=== PATIENT | male | born 1970 | race Two or more races ===

== ENCOUNTER 2020-12-06 19:54 | Emergency (ER) | payer MEDICAID, OTHER ==
[~2020-12-06] VITALS: Ht 182.9 cm; Wt 74.8 kg
[2020-12-07] MEDS ORDERED: ONDANSETRON ODT 4 MG TAB PO ONE (03:45)
[2020-12-07] MEDS ORDERED: ACETAMINOPHEN/CODEINE#3 (300/30mg) TAB PO ONE (03:45)
[2020-12-07 03:50] VITALS: BP 156/93
== END 2020-12-07 04:03 | disposition home or self-care (01) ==
LOC: ER 19:54
DX: M25.511 Pain in right shoulder (principal); F17.210 Nicotine dependence, cigarettes, uncomplicated
CPT/HCPCS: 73030; 99283; Q0162

== ENCOUNTER 2025-06-29 15:58 | Inpatient (IN) | payer MEDICAID ==
[~2025-06-29] VITALS: Ht 182.9 cm; Wt 63.9 kg
--- NOTE | 2025-06-29 16:16 | ECG ---
[facility] Test Date: 2025-06-29 Test Time: 15:58:42 Pat Name: MERVIN CAT Department: [facility] ED Room: [address] [place] [address] Gender: M [employer] Keeper: LEV : 1970 Requested By: RONY CASEY Order Number: [id number] Reading MD: Yuriy Nichols Measurements Intervals [place] Rate: 101 P: 90 FL: 120 QRS: 88 QRSD: 104 T: 69 QT: 346 QTc: 449 Interpretive Statements Sinus tachycardia Right atrial enlargement Baseline wander in lead(s) V1 Electronically Signed On 06-30-2025 15:28:40 PST by Yuriy Nichols Please click the below link to view image of tracing.
--- NOTE | 2025-06-29 17:11 | ED.PDOC ---
SOB-HPI HPI Comments This is a 54 year old male presenting to the ED with chief complaint of SOB. Patient reports that he has been experiencing SOB with associated sore throat, coughing, and wheezing for the past 3 days. Patient relays that he does smoke daily. Patient denies any chest pain, fever, chills, or N/V. Chief Complaint: Shortness of Breath Time Seen by MD: 17:10 Reviewed notes: Nurses Notes, Medications, Allergies Information Source: Patient Mode of Arrival: EMS Severity: Moderate Timing: Days Duration: Since onset Context: At Rest PE Risk Factors: None History of: None Prehospital treatment: None Associated Signs and Symptoms: Wheeze, Cough If cough with SOB: Non-Productive Past Medical History PAST MEDICAL HISTORY: Denies Surgical History: Denies all surgeries Family History Family History: Reviewed,noncontributory to illness Social History Smoker: Non-Smoker, Cigarettes, Less Than 1 Pack/Day Alcohol: Denies ETOH Use Drugs: Denies Drug Use Lives In: Home Constitutional: denies: chills, diaphoresis, fatigue, fever, malaise, sweats, weakness, others EENTM: reports: throat pain; denies: blurred vision, double vision, ear bleeding, ear discharge, ear drainage, ear pain, ear ringing, eye pain, eye redness, hearing loss, mouth pain, mouth swelling, nasal discharge, nose bleeding, nose congestion, nose pain, photophobia, tearing, throat swelling, voice changes, others Respiratory: reports: cough, shortness of breath, wheezing; denies: hemoptysis, orthopnea, SOB at rest, SOB with excertion, stridor, others Cardiovascular: denies: chest pain, dizzy spells, diaphoresis, Dyspnea on exertion, edema, irregular heart beat, left arm pain, lightheadedness, palpitations, PND, syncope, others Gastrointestinal: denies: abdomen distended, abdominal pain, blood streaked bowels, constipated, diarrhea, dysphagia, difficulty swallowing, hematemesis, melena, nausea, poor appetite, poor fluid intake, rectal bleeding, rectal pain, vomiting, others Genitourinary: denies: burning, dysuria, flank pain, frequency, hematuria, incontinence, penile discharge, penile sore, pain, testicle pain, testicle swelling, urgency, others Neurological: denies: dizziness, fainting, headache, left sided numbness, left sided weakness, numbness, paresthesia, pre-existing deficit, right sided numb ness, right sided weakness, seizure, speech problems, tingling, tremors, weakness, others Musculoskeletal: denies: back pain, gout, joint pain, joint swelling, muscle pain, muscle stiffness, neck pain, others Integumetry: denies: bruises, change in color, change in hair/nails, dryness, laceration, lesions, lumps, rash, wounds, others Allergic/Immunocompromised: denies: Difficulty Healing, Frequent Infections, Hives, Itching, others Hematologic/Lymphatic: denies: anemia, blood clots, easy bleeding, easy bruising, swollen glands, others Endocrine: denies: excessive hunger, excessive sweating, excessive thirst, excessive urination, flushing, intolerance to cold, intolerance to heat, unexplained weight gain, unexplained weight loss, others Psychiatric: denies: anxiety, bipolar disorder, depression, hopeless, panic disorder, schizophrenia, sleepless, suicidal, others All Other Systems: Reviewed and Negative Physical Exam General Appearance: Moderate Distress, Normal HEENT: Normal ENT Inspection, Pharynx Normal, TMs Normal Neck: Full Range of Motion, Non-Tender, Normal, Normal Inspection Respiratory: Chest Non-Tender, Respiratory Distress, Wheezing Cardiovascular: No Edema, No JVD, No Murmur, No Gallop, Normal Peripheral Pulses, Regular Rate/Rhythm Breast Exam: Deferred Gastrointestinal: No Organomegaly, Non Tender, No Pulsatile Mass, Normal Bowel Sounds, Soft Genitalia: Deferred Pelvic: Deferred Rectal: Deferred Extremities: No calf tenderness, Normal capillary refill, Normal inspection, Normal range of motion, Non-tender, No pedal edema Musculoskeletal : Apperance: Normal Neurologic: Alert, head batcher II-XII nml as Tested, No Motor Deficits, Normal Affect, Normal Mood, No Sensory Deficits Cerebellar Function: NOT DONE Reflexes: NOT DONE Skin: Dry, Normal Color, Warm Peripheral Pulses: 3+ Radial (R), 3+ Radial (L) Lymphatic: No Adenopathy Was a procedure done? Was a procedure done?: No Differential Dx Differential Diagnosis: Anxiety, Asthma, Bronchitis, CHF, COPD, Pneumonia, Respiratory Distress X-Ray, Labs, Meds, VS Vital Signs Date Time Temp Pulse Resp B/P (MAP) Pulse Ox O2 Delivery O2 Flow Rate FiO2 12/21/25 16:07 97.8 99 19 142/92 95 97.8 06/29/25 15:58 101 Lab Test 06/29/25 17:09 Range/Units White Blood Count Pending Red Blood Count Pending Hemoglobin Pending Hematocrit Pending Mean Corpuscular Volume Pending Mean Corpuscular Hemoglobin Pending Mean Corpuscular Hemoglobin Concent Pending Red Cell Distribution Width Pending Platelet Count Pending Mean Platelet Volume Pending Neutrophils (%) (Auto) Pending Lymphocytes (%) (Auto) Pending Monocytes (%) (Auto) Pending Basophils (%) (Auto) Pending Neutrophils # (Auto) Pending Lymphocytes # (Auto) Pending Monocytes # (Auto) Pending Sodium Level Pending Potassium Level Pending Chloride Level Pending Carbon Dioxide Level Pending Anion Gap Pending Blood Urea Nitrogen Pending Creatinine Pending Glomerular Filtration Rate Calc Pending BUN/Creatinine Ratio Pending Serum Glucose Pending Calcium Level Pending Troponin I High Sensitivity Pending Patient alert. Placed on oxygen. Came in because shortness a breath. Moving all extremities. Answering questions. Continues smoke cigarettes. Counseled patient on effects of smoking cigarettes for 15 minutes. Establish intravenous access. Was given steroid. Was given Rocephin. Was given azithromycin. Explained to the patient. Continue to monitor. Time of 1ST Reevaluation: 18:09 Reevaluation 1ST: Unchanged Patient Education/Counseling: Diagnosis, Treatment Family Education/Counseling: No Family Present SEPSIS Sepsis Screen Date sepsis recognized/suspect: Jun 29, 2025 Time Sepsis recognized/suspect: 1600 Recent Procedure: No On Antibiotic Therapy: No Respiratory Rate >20: No Heart Rate >90: No Temp<36 C (96.8 F) or >38.3 C: No SBP <90 or MAP <65 mmHG: No New Acute Mental Status Change: No Is the patient on CPAP, BIPAP,: No Physician Orders Troponin-I Hs (06/29/25 16:52) Complete Blood Count (06/29/25 16:52) Chest Portable (06/29/25 16:52) Urinalysis (06/29/25 16:52) Basic Metabolic Panel (06/29/25 16:52) Ceftriaxone 1gm/50ml (Rocephin) (06/29/25 17:15) Azithromycin 500mg/250ml (Zithromax 500m (06/29/25 17:15) Vital Signs Date Time Temp Pulse Resp B/P (MAP) Pulse Ox O2 Delivery O2 Flow Rate FiO2 06/29/25 16:07 97.8 99 19 142/92 95 97.8 06/29/25 15:58 101 Laboratory Tests Test 06/29/25 17:09 White Blood Count Pending Departure 1 Departure Time of Disposition: 17:28 Impression: Primary Impression: Acute respiratory failure Qualified Codes: J96.01 - Acute respiratory failure with hypoxia Additional Impression: Pneumonitis Disposition: ADMITTED INPATIENT Admit to: Med Surg Condition: Guarded Critical Care Note Critical Care Time?: Yes (90 min-critical care time only) Stability Stability form required: No Heart Score Heart Score: Heart Score Response (Comments) Value History N/A 0 EKG N/A 0 Age N/A 0 Risk Factors N/A 0 Troponin N/A 0 Total 0 I personally scribed for RONY CASEY MD ([email or web address]) on 06/29/25 at 17:11. Electronically submitted by Thomas Brar ([email or web address]). RONY CASEY MD Jun 29, 2025 17:11
[2025-06-29 17:31] LABS: Hematocrit 49.9 % (41.0-53.0); Hemoglobin 17.3 g/dL (13.5-17.5); Mean Corpuscular Hemoglobin 31.4 pg (28.0-32.0); Mean Corpuscular Volume 90.8 fL (80.0-100.0); Nucleated Red Blood Cells % 0.1 %
--- NOTE | 2025-06-29 17:38 | DVH ---
INDICATION: sob TECHNIQUE: Frontal view of the chest. COMPARISON: None FINDINGS: . The heart and mediastinal contours are grossly unremarkable. There are probably trace bilateral pleural effusions. The lungs are clear. The bony structures of the chest are intact without fracture. IMPRESSION: 1. No evidence of acute disease. 2. Trace bilateral pleural effusions
[2025-06-29 17:40] LABS: Potassium 3.5 mmol/L (3.5-5.1); Sodium 137 mmol/L (136-145)
[2025-06-29 17:41] LABS: Calcium 10.0 mg/dL (8.7-10.4); Carbon Dioxide 28 mmol/L (20-31)
[2025-06-29 17:44] LABS: Anion Gap 13 (5-15)
[2025-06-29 17:46] LABS: BUN/Creatinine Ratio 19.8 (10.0-20.0); Blood Urea Nitrogen 18 mg/dL (9-23)
[2025-06-29 17:47] LABS: Chloride 96 mmol/L (98-107); Glucose 111 mg/dL (74-106)
[2025-06-29] MEDS: methylPREDNISolone SOD SUCC 125 MG/2 ML VL IV ONE (20:20)
[2025-06-29] MEDS: AZITHROMYCIN 500MG/250ML 250 ML IV ONE (20:53)
[2025-06-29] MEDS ORDERED: ALBUTEROL SULF 2.5 MG/0.5ML(0.5%) NEB SOLN NEB PRN (23:30)
[2025-06-29] MEDS ORDERED: IPRATROPIUM BROM 0.5 MG/2.5ML INH SOL NEB PRN (23:30)
[2025-06-29] MEDS ORDERED: ACETAMINOPHEN 325 MG TAB PO PRN (23:30)
[2025-06-29] MEDS ORDERED: ONDANSETRON HCL 4 MG/2 ML VIAL IV PRN (23:30)
[2025-06-29] MEDS ORDERED: TEMAZEPAM 15 MG CAP PO PRN (23:30)
[2025-06-30] VITALS (10 sets, daily range): BP systolic 108–117; BP diastolic 63–77; PULSE 77–80; RESP 16–20; TEMP 97.5–98.7; O2SAT 80–100
--- NOTE | 2025-06-30 01:18 | DVHHP2 ---
History of Present Illness Reason for Visit: Shortness for breath History of Present Illness 54-year-old male presents for evaluation of shortness for breath. Patient reports a three day history of shortness for breath with associated sore throat and wheezing. No fever or chills. No chest pain Past Medical History ? COPD Past Surgical History Denies Family History Noncontributory Smoke: <1 pack per day ALCOHOL: none Drugs: None Review of Systems Review of Systems Review of systems are currently negative otherwise addressed in HPI. Allergies: Coded Allergies: NO KNOWN ALLERGIES (Unverified , 06/29/25) Medications Current Medications Medications Dose Ordered Sig/Amelia Route Start Time Stop Time Status Last Admin Dose Admin Albuterol 2.5 mg Q6HPRN PRN NEB 06/29/25 23:30 Ipratropium [place] 0.5 mg Q6HPRN PRN NEB 06/29/25 23:30 Methylprednisolone Sodium Succinate 40 mg DAILY IV 06/30/25 10:00 Temazepam 15 mg QHSP PRN PO 06/29/25 23:30 Ondansetron HCl 4 mg Q4HP PRN IV 06/29/25 23:30 Acetaminophen 650 mg Q6HP PRN PO 06/29/25 23:30 Exam Vital Signs Vital Signs Date Time Temp Pulse Resp B/P (MAP) Pulse Ox O2 Delivery O2 Flow Rate FiO2 06/30/25 00:32 97.8 87 16 123/77 (92) 97 97.8 06/29/25 20:17 Nasal Cannula 2.0 Exam Gen: 54-year-old male in mild distress. Skin: Warm, dry, normal color and texture, no rash. HEENT: Normocephalic atraumatic, mucous membranes moist and pink. Neck: Cervical and supraclavicular nodes normal without enlargement, trachea is midline, thyroid gland is normal without masses. Pulmonary: Bilateral wheeze Cardiac: Regular rate and rhythm. No murmur Abdomen: Soft, nontender, nondistended, bowel sounds present all 4 quadrants, no guarding, no rigidity, no organomegaly. Extremities: No cyanosis, clubbing, no edema Neuro: Cranial nerves II through XII grossly intact, normal affect and speech, no focal motor deficits. Labs/Xrays ORDERING PHYSICIAN: RONY CASEY MD PROCEDURE(s): CXRP - CHEST PORTABLE REASON: sob ORDER NUMBER(s): [id number], ACCESSION NUMBER(s): [id number] INDICATION: sob TECHNIQUE: Frontal view of the chest. COMPARISON: None FINDINGS: . The heart and mediastinal contours are grossly unremarkable. There are probably trace bilateral pleural effusions. The lungs are clear. The bony structures of the chest are intact without fracture. IMPRESSION: 1. No evidence of acute disease. 2. Trace bilateral pleural effusions Labs Test 06/29/25 23:41 06/29/25 17:09 Range/Units D-Dimer, Quantitative 0.36 0.0-0.49 mg/L FEU White Blood Count 11.8 H 4.4-10.8 10^3/uL Red Blood Count 5.50 4.5-5.90 10^6/uL Hemoglobin 17.3 13.5-17.5 g/dL Hematocrit 49.9 41.0-53.0 % Mean Corpuscular Volume 90.8 80.0-100.0 fL Mean Corpuscular Hemoglobin 31.4 28.0-32.0 pg Mean Corpuscular Hemoglobin Concent 34.6 32.0-36.0 g/dL Red Cell Distribution Width 13.6 11.8-14.3 % Platelet Count 294 140-450 10^3/uL Mean Platelet Volume 8.8 6.9-10.8 fL Neutrophils (%) (Auto) 67.6 37.0-80.0 % Lymphocytes (%) (Auto) 19.3 10.0-50.0 % Monocytes (%) (Auto) 11.7 0.0-12.0 % Eosinophils (%) (Auto) 0.5 0.0-7.0 % Basophils (%) (Auto) 0.9 0.0-2.0 % Neutrophils # (Auto) 8.0 1.6-8.6 10 ^3/uL Lymphocytes # (Auto) 2.3 0.4-5.4 10 ^3/uL Monocytes # (Auto) 1.4 H 0-1.3 10 ^3/uL Eosinophils # (Auto) 0.1 0-0.8 10 ^3/uL Basophils # (Auto) 0.1 0-0.2 10 ^3/uL Nucleated Red Blood Cells 0.1 % Sodium Level 137 136-145 mmol/L Potassium Level 3.5 3.5-5.1 mmol/L Chloride Level 96 L 98-107 mmol/L Carbon Dioxide Level 28 20-31 mmol/L Anion Gap 13 5-15 Blood Urea Nitrogen 18 9-23 mg/dL Creatinine 0.91 0.700-1.30 mg/dL Glomerular Filtration Rate Calc 100 >90 mL/min BUN/Creatinine Ratio 19.8 10.0-20.0 Serum Glucose 111 H 74-106 mg/dL Calcium Level 10.0 8.7-10.4 mg/dL Troponin I High Sensitivity 9 </=54 ng/L SEPSIS Sepsis Screen Date sepsis recognized/suspect: Jun 29, 2025 Time Sepsis recognized/suspect: 2226 Recent Procedure: No On Antibiotic Therapy: Yes (DURING THIS HOSPITALIZATION) Respiratory Rate >20: No Heart Rate >90: No Temp<36 C (96.8 F) or >38.3 C: No SBP <90 or MAP <65 mmHG: No New Acute Mental Status Change: No Is the patient on CPAP, BIPAP,: No Physician Orders Covid19 Antigen Bell (06/29/25 ) Rapid Influenza A&B (06/29/25 23:30) Albuterol Medneb (Ventolin Medneb) (06/29/25 23:30) Ipratropium Medneb (Atrovent Medneb) (06/29/25 23:30) Methylprednisolone Sod Succ (Solu Medrol (06/30/25 10:00) Basic Metabolic Panel (06/30/25 04:00) Admit (06/29/25 23:30) Temazepam (Restoril) (06/29/25 23:30) Ondansetron Hcl (Zofran) (06/29/25 23:30) Complete Blood Count (06/30/25 04:00) Condition: Stable (06/29/25 23:30) Acetaminophen Tablet (Tylenol Tablet) (06/29/25 23:30) Bedrest With Bathroom Privileg (06/29/25 23:30) Vital Signs Date Time Temp Pulse Resp B/P (MAP) Pulse Ox O2 Delivery O2 Flow Rate FiO2 06/30/25 00:32 97.8 87 16 123/77 (92) 97 97.8 06/29/25 22:27 89 15 105/64 (78) 96 06/29/25 20:17 Nasal Cannula 2.0 06/29/25 20:16 97.3 93 22 120/80 (93) 98 97.3 Laboratory Tests Test 06/29/25 17:09 White Blood Count 11.8 10^3/uL (4.4-10.8) H Medications Medications Dose Ordered Sig/Amelia Route Start Time Stop Time Status Last Admin Dose Admin Azithromycin 250 ml @ 125 mls/hr ONCE ONCE IV 06/29/25 17:15 06/29/25 19:14 DC 06/29/25 20:53 125 MLS/HR Ceftriaxone Sodium 50 ml @ 100 mls/hr ONCE ONCE IV 06/29/25 17:15 06/29/25 17:44 DC 06/29/25 20:20 100 MLS/HR Methylprednisolone Sodium Succinate 125 mg ONCE ONCE IV 06/29/25 17:15 06/29/25 17:16 DC 06/29/25 20:20 125 MG Assessment/Plan Assessment/Plan Acute on chronic hypoxic respiratory failure COPD with possible exacerbation Plan Admit the patient to Med surge to the hospitalist Med nebs Continue treatment per orders. Plan discussed with: Patient My Orders Orders - IGNACIO HONEYCUTT Procedure Category Date Status Time Covid19 Antigen Bell LAB 06/29/25 Logged Rapid Influenza A&B LAB 06/29/25 Logged 23:30 Albuterol Medneb PHA 06/29/25 In Process (Ventolin Medneb) 23:30 Ipratropium Medneb PHA 06/29/25 In Process (Atrovent Medneb) 23:30 Methylprednisolone PHA 06/30/25 In Process Sod Succ (Solu Medrol 10:00 Basic Metabolic Panel LAB 06/30/25 Logged 04:00 Admit ADMIT 06/29/25 Transmitted 23:30 Temazepam (Restoril) PHA 06/29/25 In Process 23:30 Ondansetron Hcl PHA 06/29/25 In Process (Zofran) 23:30 Complete Blood Count LAB 06/30/25 Logged 04:00 Condition: Stable VITALY 06/29/25 In Process 23:30 Acetaminophen Tablet PHA 06/29/25 In Process (Tylenol Tablet) 23:30 Bedrest With Bathroom VITALY 06/29/25 In Process Privileg 23:30 Date of Service: Jun 29, 2025 Billing Provider: IGNACIO HONEYCUTT Common Visit Codes: [id number] INP/OBS CARE (HIGH) IGNACIO HONEYCUTT Jun 30, 2025 01:18
[2025-06-30 03:21] LABS: COVID19 ANTIGEN SOFIA FIA NEGATIVE (NEGATIVE)
[2025-06-30 04:31] LABS: Hematocrit 49.8 % (41.0-53.0); Hemoglobin 16.9 g/dL (13.5-17.5); Mean Corpuscular Hemoglobin 31.0 pg (28.0-32.0); Mean Corpuscular Volume 91.7 fL (80.0-100.0); Nucleated Red Blood Cells % 0.2 %
[2025-06-30 04:51] LABS: Anion Gap 14 (5-15); Carbon Dioxide 28 mmol/L (20-31); Potassium 3.9 mmol/L (3.5-5.1)
[2025-06-30 04:52] LABS: Calcium 10.2 mg/dL (8.7-10.4)
[2025-06-30 04:53] LABS: Chloride 94 mmol/L (98-107); Sodium 136 mmol/L (136-145)
[2025-06-30 04:57] LABS: BUN/Creatinine Ratio 18.2 (10.0-20.0); Blood Urea Nitrogen 18 mg/dL (9-23)
[2025-06-30 05:14] LABS: Glucose 143 mg/dL (74-106)
[2025-06-30 08:00] LABS: Urine Protein, UAD 1+ (Negative)
[2025-06-30 09:23] LABS: Alanine Aminotransferase 17.0 U/L (7-40); Alkaline Phosphatase 115.0 U/L (46-116)
[2025-06-30 09:24] LABS: Albumin 4.9 g/dL (3.2-4.8); Bilirubin, Direct 0.2 mg/dL (<0.3); Bilirubin, Total 0.4 mg/dL (0.2-1.0); Total Protein 8.7 g/dL (5.7-8.2)
[2025-06-30] MEDS: methylPREDNISolone SOD SUCC 40 MG/ML VL ONE (09:35)
[2025-06-30] MEDS: methylPREDNISolone SOD SUCC 40 MG/ML VL IV SCH (10:00)
--- NOTE | 2025-06-30 13:44 | DVHPNRES ---
Progress Note Date Seen: Jun 30, 2025 Resident Creating Document: KASEY KOO RESIDENT Has the PT tested + for MRSA If YES, has PT been informed?: No Medical Necessity Reason Pt with a Central, PICC or Fol: No Subjective Patient reports: No new complaints, Feels better Objective vital signs Vital Sign Date Time Temp Pulse Resp B/P (MAP) Pulse Ox O2 Delivery O2 Flow Rate FiO2 06/30/25 08:00 79 20 91 Nasal Cannula* 3 32 06/30/25 05:00 97.5 108/73 (85) 97.5 Total Intake and Output 06/29/25 06/29/25 06/30/25 15:00 23:00 07:00 Intake Total 300 ml 0 ml Balance 300 ml 0 ml medications Current Medications Medications Dose Ordered Sig/Amelia Route Start Time Stop Time Status Last Admin Dose Admin Albuterol 2.5 mg Q6HPRN PRN NEB 06/29/25 23:30 Ipratropium [place] 0.5 mg Q6HPRN PRN NEB 06/29/25 23:30 Methylprednisolone Sodium Succinate 40 mg DAILY IV 06/30/25 10:00 06/30/25 10:00 40 MG Temazepam 15 mg QHSP PRN PO 06/29/25 23:30 Ondansetron HCl 4 mg Q4HP PRN IV 06/29/25 23:30 Acetaminophen 650 mg Q6HP PRN PO 06/29/25 23:30 Azithromycin 250 ml @ 125 mls/hr DAILY IV 07/01/25 10:00 Ceftriaxone Sodium 50 ml @ 100 mls/hr DAILY@09 IV 07/01/25 09:00 Nicotine 1 patch DAILY TD 07/01/25 10:00 UNV Examination Skin: Warm, dry, normal color and texture, no rash. HEENT: Normocephalic atraumatic, mucous membranes moist and pink. Neck: Cervical and supraclavicular nodes normal without enlargement, trachea is midline, thyroid gland is normal without masses. Pulmonary: Bilateral wheeze, still on 3 L NC Cardiac: Regular rate and rhythm. No murmur Abdomen: Soft, nontender, nondistended, bowel sounds present all 4 quadrants, no guarding, no rigidity, no organomegaly. Extremities: No cyanosis, clubbing, no edema Neuro: Cranial nerves II through XII grossly intact, normal affect and speech, no focal motor deficits. laboratory and microbiology Laboratory Tests 06/30/25 03:56 Test 06/30/25 03:56 Range/Units Serum Glucose 143 H 74-106 mg/dL Labs and/or images reviewed: Labs reviewed by me, Image(s) reviewed by me Problem List/Assessment/Plan Problem List/Assessment/Plan Hilario Quintana, a 54-year-old male with a history of COPD who presents with a three-day history of shortness of breath accompanied by sore throat and wheezing, without fever, chills, or chest pain; he smokes less than one pack per day, denies alcohol or drug use, and has no significant surgical or family history. PCP Dr. Barraza. Assessment: #Acute hypoxic respiratory failure, on 3 L NC. #COPD with possible exacerbation #Active smoeker, nicotine abuse. #URI with sore throat, -ve viral panel #Community acquired pneumonia, likely gram -ve and positives, with atypicals #Unlikely cardiac etiology, BNP and trops -ve EKG unremarkable. Plan: #Check strep throat, follow cbc. #Continue Nebs, S/p methyprednosolone, daily 40 mg methylpredinosolone #Smoking cessation counseling for >11 minutes. #Nicotine patch in hospital avoid smoking with it. #Continue abx day 2/7 ceftriaxone and azithromycin. #Wean oxygen as tolerated to keep SPo2 92% around. Goals of care discussed with the patient for more than 23 minutes. Case discussed with the Dr. Monique. Plan discussed with: Patient My Orders My Orders Orders - KASEY KOO RESIDENT Procedure Category Date Status Time Rapid Strep Screen - LAB 06/30/25 Logged Throat 08:42 Rapid Strep Screen - LAB 06/30/25 Logged Throat 11:56 Azithromycin PHA 07/01/25 In Process 500mg/250ml 10:00 Ceftriaxone 1gm/50ml PHA 07/01/25 In Process (Rocephin) 09:00 Nicotine 14mg/24hr PHA 06/30/25 Logged (Nicoderm 14mg/24hr) 13:45 Nicotine 14mg/24hr PHA 07/01/25 Logged (Nicoderm 14mg/24hr) 10:00 Complete Blood Count LAB 07/01/25 Verified 04:00 Dietary Evaluation Review Comments: Monitor PO intakes Offer Ensure High Protein 240ml PO BID if PO intake <50% Discurage smoking Expected Outcomes/Goals: follow up with PO intake, Wt trend, and lab values, reassess PRN Date of Service: Jun 30, 2025 Billing Provider: GEREMIAS MONIQUE MD Common Visit Codes: [id number] INP/OBS CARE(HIGH) KASEY KOO RESIDENT Jun 30, 2025 13:44 GEREMIAS MONIQUE MD Jun 30, 2025 23:57
[2025-06-30] MEDS: NICOTINE 14 MG/24HR TOPICAL PATCH TD ONE (15:46)
[2025-06-30 17:20] LABS: Rapid Strep A Screen-Throat Negative
[2025-07-01] VITALS (10 sets, daily range): BP systolic 125–131; BP diastolic 85–86; PULSE 74–88; RESP 16–18; TEMP 98.4–98.7; O2SAT 96–100
[2025-07-01 05:46] LABS: Hematocrit 45.7 % (41.0-53.0); Hemoglobin 15.5 g/dL (13.5-17.5); Mean Corpuscular Hemoglobin 30.8 pg (28.0-32.0); Mean Corpuscular Volume 90.6 fL (80.0-100.0); Nucleated Red Blood Cells % 0.1 %
[2025-07-01] MEDS ORDERED: methylPREDNISolone SOD SUCC 40 MG/ML VL ONE (09:35)
[2025-07-01] MEDS: NICOTINE 14 MG/24HR TOPICAL PATCH TD SCH (09:38)
[2025-07-01] MEDS: IPRATROPIUM BROM 0.5 MG/2.5ML INH SOL NEB SCH ×2 (10:10→19:20)
[2025-07-01] MEDS: ALBUTEROL SULF 2.5 MG/0.5ML(0.5%) NEB SOLN NEB SCH ×2 (10:10→19:20)
[2025-07-01] MEDS: AZITHROMYCIN 500MG/250ML 250 ML IV SCH (11:07)
--- NOTE | 2025-07-01 12:59 | DVH ---
PROCEDURE: CT CHEST WITHOUT CONTRAST Reason for study/Clinical History: wt loss and sob,r/o malignancy Comparison Study: XY CHEST PORTABLE on DOS: 06/29/25 TECHNIQUE: Multidetector CT of the chest was performed from the lung apices to the upper abdomen without the use of intravenous contract. Axial, coronal and sagittal multiplanar reformats were performed. Radiation Dose Information: CT Dose: CTDI volume is 5.5 mGy. Dose-length product is 249.34 mGy*cm The dose indicators for CT are the volume Computed Tomography (CT) Dose Index (CTDIvol) and the Dose Length Product (DLP), and are measured in units of mGy and mGy-cm, respectively. These indicators are not patient dose, but values generated from the CT scanner acquisition factors. The report includes radiation exposure data for exposures received during this examination. FINDINGS: Lower neck: Unremarkable. Lungs: Central airways patent. Spiculated superior lingular nodule measuring 11 mm (series 3, image 43). Left lower lobe subpleural pulmonary nodule measuring 5 mm (image 55). Heart/Vascular Structures: Normal heart size. Coronary calcifications. No pericardial effusion. Lymph Nodes: No adenopathy Pleura: No pleural effusion or significant pneumothorax. Musculoskeletal: No acute osseous abnormality. Soft tissues: Upper thoracic esophagus appears concentrically thickened.. Upper abdomen: Limited portions of the upper abdomen are unremarkable. IMPRESSION: Mildly spiculated superior lingular nodule measuring 11 mm. Further assessment with either PET-CT, tissue sampling, or short-term follow-up CT in 3 months is recommended. Thickening of the upper thoracic esophagus, nonspecific and poorly assessed on this study. Consider endoscopy or PET/CT to exclude malignancy. Radiation optimization: All CT scans at this facility use at least one of these dose optimization techniques: automated exposure control mA and/or kV adjustment per patient size (includes targeted exams where dose is matched to clinical indication) or iterative reconstruction.
--- NOTE | 2025-07-01 18:21 | DVHPNRES ---
Progress Note Date Seen: Jul 01, 2025 Resident Creating Document: EMELY MONTAÑO RESIDENT Has the PT tested + for MRSA If YES, has PT been informed?: No Medical Necessity Reason Pt with a Central, PICC or Fol: No Subjective Review of Systems ROS: 07/01/2025: Patient was seen and examined by me at the bedside. Labs and charts reviewed. Today the patient reports that he is still short of breath but it has improved since he needs no oxygen to maintain saturation. patient today also endorsed of 30 lb weight loss over 2 months. No new complaints today. Objective vital signs Vital Sign Date Time Temp Pulse Resp B/P (MAP) Pulse Ox O2 Delivery O2 Flow Rate FiO2 07/01/25 15:53 98.7 84 18 131/85 (100) 96 98.7 07/01/25 14:09 Room Air* 0 21 medications Current Medications Medications Dose Ordered Sig/Amelia Route Start Time Stop Time Status Last Admin Dose Admin Methylprednisolone Sodium Succinate 40 mg DAILY IV 06/30/25 10:00 07/01/25 09:38 40 MG Temazepam 15 mg QHSP PRN PO 06/29/25 23:30 Ondansetron HCl 4 mg Q4HP PRN IV 06/29/25 23:30 Acetaminophen 650 mg Q6HP PRN PO 06/29/25 23:30 Azithromycin 250 ml @ 125 mls/hr DAILY IV 07/01/25 10:00 07/01/25 11:07 125 MLS/HR Ceftriaxone Sodium 50 ml @ 100 mls/hr DAILY@09 IV 07/01/25 09:00 07/01/25 09:32 100 MLS/HR Nicotine 1 patch DAILY TD 07/01/25 10:00 07/01/25 09:38 1 PATCH Albuterol 2.5 mg Q6HWA NEB 07/01/25 16:00 Ipratropium Lyndon 0.5 mg Q6HWA NEB 07/01/25 16:00 Examination Skin: Warm, dry, normal color and texture, no rash. HEENT: Normocephalic atraumatic, mucous membranes moist and pink. Neck: Cervical and supraclavicular nodes normal without enlargement, trachea is midline, thyroid gland is normal without masses. Pulmonary: Bilateral wheeze mild Cardiac: Regular rate and rhythm. No murmur Abdomen: Soft, nontender, nondistended, bowel sounds present all 4 quadrants, no guarding, no rigidity, no organomegaly. Extremities: No cyanosis, clubbing, no edema Neuro: Cranial nerves II through XII grossly intact, normal affect and speech, no focal motor deficits. laboratory and microbiology Laboratory Tests 07/01/25 05:31 06/30/25 03:56 Test 06/30/25 03:56 Range/Units Serum Glucose 143 H 74-106 mg/dL Microbiology Date/Time Source Procedure Growth Status 06/30/25 15:21 Throat Nose/Throat Culture - Preliminary Resulted Labs and/or images reviewed: Labs reviewed by me, Image(s) reviewed by me Problem List/Assessment/Plan Problem List/Assessment/Plan Hilario Quintana, a 54-year-old male with a history of COPD who presents with a three-day history of shortness of breath accompanied by sore throat and wheezing, without fever, chills, or chest pain; he smokes less than one pack per day, denies alcohol or drug use, and has no significant surgical or family history. PCP Dr. Barraza. Assessment: #Acute hypoxic respiratory failure, on 3 L NC on admission #COPD with possible exacerbation #Active smoeker, nicotine abuse. #URI with sore throat, strep positive, -ve viral panel #Community acquired pneumonia, likely gram -ve and positives, with atypicals #Unlikely cardiac etiology, BNP and trops -ve EKG unremarkable. Plan: #strep throat +ve, follow cbc. #Continue Med Nebs, S/p methyprednosolone, daily 40 mg methylpredinosolone #Smoking cessation counseling for >11 minutes. #Nicotine patch in hospital avoid smoking with it. #Continue abx day 3/7 ceftriaxone and azithromycin. Goals of care discussed with the patient for more than 23 minutes. Case discussed with the Dr. Monique. Plan discussed with: Patient, Other My Orders My Orders Orders - EMELY MONTAÑO RESIDENT Procedure Category Date Status Time Chest Without Contrast CT 07/01/25 Resulted 12:09 Dietary Evaluation Review Comments: Monitor PO intakes Offer Ensure High Protein 240ml PO BID if PO intake <50% Discurage smoking Expected Outcomes/Goals: follow up with PO intake, Wt trend, and lab values, reassess PRN Visit Coding STANDARD RES Billing Provider: GEREMIAS MONIQUE MD Date of Service if different f: Jul 01, 2025 Common Visit Codes: 38384-[id number] INP/OBS CARE(HIGH) EMELY MONTAÑO RESIDENT Jul 01, 2025 18:21
[2025-07-02] VITALS (12 sets, daily range): BP systolic 106–138; BP diastolic 54–88; PULSE 60–82; RESP 16–20; TEMP 36.9; O2SAT 94–100
[2025-07-02 05:10] LABS: Hematocrit 45.9 % (41.0-53.0); Hemoglobin 15.2 g/dL (13.5-17.5); Mean Corpuscular Hemoglobin 30.2 pg (28.0-32.0); Mean Corpuscular Volume 91.0 fL (80.0-100.0); Nucleated Red Blood Cells % 0.1 %
[2025-07-02] MEDS: methylPREDNISolone SOD SUCC 40 MG/ML VL IV SCH (09:26)
[2025-07-02] MEDS: guaiFENesin-DM 100/10mg/5ml SYR PO ONE (10:23)
[2025-07-02] MEDS ORDERED: ALBU1.258 IN (13:34)
[2025-07-02] MEDS ORDERED: AZIT-185 PO (13:34)
[2025-07-02] MEDS ORDERED: DEXT100S73 PO (13:34)
[2025-07-02] MEDS ORDERED: PRED20TA2 PO (13:34)
--- NOTE | 2025-07-02 16:23 | DVHDSRES ---
Discharge Summary Date of Admission Resident Creating Document: EMELY MONTAÑO RESIDENT Jun 29, 2025 at 23:30 Date of Discharge: Jul 02, 2025 Admitting Diagnosis Acute hypoxic respiratory failure Labs/Diagnostic Data: Laboratory Results Test 07/02/25 04:31 06/30/25 15:21 06/30/25 03:56 06/30/25 02:00 White Blood Count 12.0 10^3/uL (4.4-10.8) Red Blood Count 5.04 10^6/uL (4.5-5.90) Hemoglobin 15.2 g/dL (13.5-17.5) Hematocrit 45.9 % (41.0-53.0) Mean Corpuscular Volume 91.0 fL (80.0-100.0) Mean Corpuscular Hemoglobin 30.2 pg (28.0-32.0) Mean Corpuscular Hemoglobin Concent 33.2 g/dL (32.0-36.0) Red Cell Distribution Width 13.6 % (11.8-14.3) Platelet Count 280 10^3/uL (140-450) Mean Platelet Volume 9.0 fL (6.9-10.8) Neutrophils (%) (Auto) 65.9 % (37.0-80.0) Lymphocytes (%) (Auto) 23.0 % (10.0-50.0) Monocytes (%) (Auto) 10.5 % (0.0-12.0) Eosinophils (%) (Auto) 0.3 % (0.0-7.0) Basophils (%) (Auto) 0.3 % (0.0-2.0) Neutrophils # (Auto) 7.9 10 ^3/uL (1.6-8.6) Lymphocytes # (Auto) 2.8 10 ^3/uL (0.4-5.4) Monocytes # (Auto) 1.3 10 ^3/uL (0-1.3) Eosinophils # (Auto) 0 10 ^3/uL (0-0.8) Basophils # (Auto) 0 10 ^3/uL (0-0.2) Nucleated Red Blood Cells 0.1 % Group A Streptococcus Rapid Negative Sodium Level 136 mmol/L (136-145) Potassium Level 3.9 mmol/L (3.5-5.1) Chloride Level 94 mmol/L (98-107) Carbon Dioxide Level 28 mmol/L (20-31) Anion Gap 14 (5-15) Blood Urea Nitrogen 18 mg/dL (9-23) Creatinine 0.99 mg/dL (0.700-1.30) Glomerular Filtration Rate Calc 90 mL/min (>90) BUN/Creatinine Ratio 18.2 (10.0-20.0) Serum Glucose 143 mg/dL (74-106) Calcium Level 10.2 mg/dL (8.7-10.4) Total Bilirubin 0.4 mg/dL (0.2-1.0) Direct Bilirubin 0.2 mg/dL (<0.3) Aspartate Amino Transferase (AST) 15 U/L (13-40) Alanine Aminotransferase (ALT) 17 U/L (7-40) Alkaline Phosphatase 115 U/L (46-116) B-Type Natriuretic Peptide 45.38 pg/mL (0-100) Total Protein 8.7 g/dL (5.7-8.2) Albumin 4.9 g/dL (3.2-4.8) Influenza Type A Antigen Negative (Negative) Influenza Type B Antigen Negative (Negative) SARS-CoV-2 Antigen (Rapid) Negative (NEGATIVE) Test 06/29/25 23:41 06/29/25 17:09 06/29/25 17:05 D-Dimer, Quantitative 0.36 mg/L FEU (0.0-0.49) Troponin I High Sensitivity 9 ng/L (</=54) Urine Color Yellow (Yellow) Urine Clarity Clear (Clear) Urine pH 5.5 (5.0-9.0) Urine Specific [place] 1.030 (1.001-1.035) Urine Protein 1+ (Negative) Urine Ketones Trace (Negative) Urine Blood Negative /uL (Negative) Urine Nitrite Negative (Negative) Urine Bilirubin Negative (Negative) Urine Urobilinogen Normal mg/dL (Negative) Urine Leukocyte Esterase Negative /uL (Negative) Urine RBC 1 /hpf (0 - 3) Urine Microscopic WBC 1 /HPF (0-3) Urine Squamous Epithelial Cells None seen /hpf (<5) Urine Bacteria None seen /hpf (None Seen) Urine Hyaline Casts Few /lpf (0 - 2) Urine Mucus Few (None Seen) Urine Glucose Normal mg/dL (Normal) Other Laboratory Tests 07/02/25 04:31 06/30/25 03:56 Brief Hx & Hospital Course: Brief history of hospitalization: Hilario Quintana, a 54-year-old male with no significant medical history presents who presents with a three-day history of shortness of breath accompanied by sore throat and dry cough. Chest x-ray showed hyperinflated lungs and trace bilateral pleural effusions. He had acute hypoxic respiratory failure and was kept on 3 L of oxygen which was later weaned off. Patient was given med nebulizations with albuterol and ipratropium bromide and steroids. Strep throat came back positive and patient was given antibiotics ceftriaxone and azithromycin. Since patient complained of weight loss of 20 lb in the last 2 months, CT chest without contrast was done which showed mildly spiculated superior lingular nodule measuring 11 mm. patient has been counseled regarding the nodule and the need of a repeat CT in 3 months to rule out malignancy. All questions inquiry /3. Patient is now stable for discharge, has no oxygen requirements and will be going home with oral antibiotics. He has been counseled regarding cessation of smoking and to follow up with his primary care physician and [facility] within 7 days. General Appearance: Alert, Oriented X3, Cooperative, Not in acute distress HEENT: Atraumatic, Mucous membranes moist/pink Respiratory: Clear to auscultation, Normal air movement, mild rochi due to cough Cardiovascular: Regular rate, Normal S1, Normal S2, No murmurs Abdominal: Active bowel sounds, Soft, no distention, no tenderness Extremities: No edema, Normal pulses, No tenderness/swelling Skin: No Significant rash, except past surgical scars Neuro: Normal speech, sensorimotor deficits none Psych/Mental Status: Mental status NL, Mood NL Nurse was there as boat hand during examination Operations or Procedures PROCEDURE(s): CXRP - CHEST PORTABLE REASON: sob ORDER NUMBER(s): [id number], ACCESSION NUMBER(s): [id number] INDICATION: sob TECHNIQUE: Frontal view of the chest. COMPARISON: None FINDINGS: . The heart and mediastinal contours are grossly unremarkable. There are probably trace bilateral pleural effusions. The lungs are clear. The bony structures of the chest are intact without fracture. IMPRESSION: 1. No evidence of acute disease. 2. Trace bilateral pleural effusions Condition at Discharge: Stable Final Diagnosis/Problems List #Acute hypoxic respiratory failure, on 3 L NC on admission. #Acute COPD with possible exacerbation #Active smoeker, nicotine abuse. #URI with sore throat, -ve viral panel #Community acquired pneumonia, likely gram -ve and positives, with atypicals #Unlikely cardiac etiology, BNP and trops -ve EKG unremarkable. Discharge Disposition: Home Discharge Instruct/Medications Diet: Consistent carbohydrate, Cardiac 2g Na,low cholest Activity: No Restrictions, As Tolerated Follow Up/Referral: With PCP in 10 days Follow up at [facility] within 7 days Medications: As per EMR Scheduled Azithromycin (Zithromax Tablet), 250 MG PO DAILY Dextromethorphan-Guaifenesin (Robafen Dm Clear 100-10 mg/5Ml), 1 SYP PO TIDBM Prednisone (Prednisone), 20 MG PO DAILY Scheduled PRN Albuterol Sulfate (Albuterol Sulfate), 1.25 MG IN TIDP PRN Discharge Statement: "Patient was advised to return to the ER or call 911 if any headaches, dizziness, shortness of breath, chest pain, abdominal pain, bleeding, fevers, or worsening of medical condition. Patient was counseled about treatment plan, medications, possible side effects, patientverbalized understanding. All questions were answered to the best of my ability. This discharge took greater then 30 minutes in planning, reviewing documentation, counseling the patient, and discussing with other team members." ASSESSMENT ASSESSMENT Assessment #Acute hypoxic respiratory failure, on 3 L NC on admission #COPD with possible exacerbation #Active smoeker, nicotine abuse. #URI with sore throat, strep positive, -ve viral panel #Community acquired pneumonia, likely gram -ve and positives, with atypicals #Unlikely cardiac etiology, BNP and trops -ve EKG unremarkable. Visit Coding STANDARD RES Billing Provider: GEREMIAS MONIQUE MD Date of Service if different f: Jul 02, 2025 Common Visit Codes: 74835-LUF/OBS DISCH DAY >30min EMELY MONTAÑO RESIDENT Jul 02, 2025 16:23
[2025-07-04] MEDS ORDERED: ALBUAER3 IN (10:25)
[2025-07-04] MEDS ORDERED: PRED20TA2 PO (10:35)
== END 2025-07-02 17:19 | disposition home or self-care (01) | DRG 140 ==
LOC: ER 15:58 → EDBD 15:58 → OVERFLOW 23:30 → ER 23:35 → OVERFLOW 23:35 → ER 23:55 → WEST WING 07-01 15:49
PROVIDERS: ADMIT Internal Medicine; ATTEND Internal Medicine
DX: J44.1 Chronic obstructive pulmonary disease with (acute) exacerbation (principal); J96.21 Acute and chronic respiratory failure with hypoxia; J15.69 Pneumonia due to other Gram-negative bacteria; J15.9 Unspecified bacterial pneumonia; J44.0 Chronic obstructive pulmonary disease with (acute) lower respiratory infection; R65.10 Systemic inflammatory response syndrome (SIRS) of non-infectious origin without acute organ dysfunction; Z20.822 Contact with and (suspected) exposure to COVID-19; F17.210 Nicotine dependence, cigarettes, uncomplicated; J20.9 Acute bronchitis, unspecified; Z71.6 Tobacco abuse counseling
CPT/HCPCS: 36415; 71045; 71250; 80048; 80076; 81001; 83880; 84484; 85025; 85379; 87070; 87426; 87804; 87880; 93005; 94640; 99291; 99292; G0378